=== PATIENT | female | born 1970 ===

== ENCOUNTER → 2018-12-18 | Emergency (ER) | payer OTHER ==
[~2018-12-18] VITALS: Ht 157.5 cm; Wt 59.0 kg
[~2018-12-18] MED LIST: CIPRO500 MG PO; ULTRACET PO
== END | disposition home or self-care (01) ==
LOC: ER 11:05
DX: N20.0 Calculus of kidney (principal)

== ENCOUNTER → 2018-12-21 | Emergency (ER) | payer OTHER ==
[~2018-12-21] VITALS: Ht 157.5 cm; Wt 59.0 kg
== END | disposition designated cancer center or children's hospital (05) ==
LOC: ER 00:35
DX: N13.39 Other hydronephrosis (principal); R10.32 Left lower quadrant pain